=== PATIENT | male | born 1965 | race Caucasian/White ===

== ENCOUNTER 2023-11-27 17:04 | Emergency (ER) | payer SELFPAY ==
--- NOTE | 2023-11-27 17:02 | ECG_ITS ---
[facility] Test Date: 2023-11-27 Pat Name: Mika Bang Department: Room: Gender: Male Education And Training Coordinator: : 1965 Requested By: Octavio Connor Order Number: [id number] Petrona MD: Damian Choudhary M.D. Measurements Intervals [place] Rate: 75 P: 60 [place]: 166 QRS: 47 QRSD: 91 T: 65 QT: 370 QTc: 415 Interpretive Statements SINUS RHYTHM No previous ECG available for comparison Electronically Signed On 11-27-2023 19:21:36 CDT by Damian Choudhary M.D. [id number]
[2023-11-27 17:05] VITALS: BP 116/69; PULSE 72; RESP 18; TEMP 36.8; O2SAT 98; BMI 25.0
--- NOTE | 2023-11-27 17:09 | XRR_ITS ---
PROCEDURE INFORMATION: Exam: XR Chest Exam date and time: 11/27/2023 5:20 PM Age: 58 years old Clinical indication: Chest pressure; Patient HX: Syncopal episode; Chest pain TECHNIQUE: Imaging protocol: Radiologic exam of the chest. Views: 1 view. COMPARISON: No relevant prior studies available. FINDINGS: Lungs: Unremarkable. No consolidation. Pleural spaces: Unremarkable. No pleural effusion. No pneumothorax. Heart/Mediastinum: Unremarkable. No cardiomegaly. Bones/joints: Unremarkable. XR/XR chest 1V portable [id number] IMPRESSION: No acute findings.
--- NOTE | 2023-11-27 17:12 | ED_ITS ---
HPI - General Adult 2 General: Chief complaint: Syncope Stated complaint: STEMI Time Seen by Provider: 11/27/23 17:09 History of Present Illness: Patient has syncopal episode EMS arrived there. EMS got a twelve-lead that showed some ST segment elevation they called a STEMI alert. When patient arrived here patient was not having chest pain nor is he ever had chest pain, there initial blood pressure was 66/35 or so they gave him roughly a liter bolus normal saline upon arrival here his blood pressure was about 100/70 or so patient said he never had chest pain does not have any cardiac history is never had cardiac stents does not see a plastic fabricator. EKG here did not show probable STEMI may have had some ST segment elevation but he did not have any reciprocal changes, instructional media services technician was here she agreed and was taking the EKG down to Dr. Barajas. Patient was given 3 and 24 [address] by EMS. Dr. Barajas called back and said he is calling off the STEMI, does follow serial EKGs and troponins. Related Data Previous Rx's Medication Instructions Recorded clindamycin HCl 300 mg capsule 300 mg PO TID 10 days #30 caps 11/18/20 mupirocin 2 % topical ointment 1 applic topical BID #15 grams 11/18/20 cephalexin 500 mg capsule 500 mg PO Q8H 10 days #30 caps 12/05/20 Allergies Allergy/AdvReac Type Severity Reaction Status Date / Time No Known Allergies Allergy Verified 12/05/20 10:34 Review of Systems 2 General: Reports: 10 or more systems reviewed and unremarkable except in HPI and below PFSH ED 2 PFSH: Surgical History H/O shoulder surgery Family History Father Hypertension CAD (coronary artery disease) Mother Cancer leukemia Hypertension Physical Exam 2 Const: COMMON NORMALS: no acute distress, average body habitus, patient oriented x3, no limitations, healthy appearing, alert and well nourished HENMT: COMMON NORMALS: normocephalic, atraumatic, hearing grossly normal bilaterally, external ears normal, Normal external nose present and moist oral mucous membranes HEAD & SCALP: normocephalic and atraumatic NOSE: Normal external nose present EXTERNAL EAR: Yes external ears normal Neck/C-Spine: COMMON NORMALS: full ROM, no lymphadenopathy, supple, no meningeal signs, no JVD and Thyroid normal THYROID: Thyroid normal Chest: COMMONS NORMALS: normal inspection of the chest and normal palpation of entire chest wall Cardio: COMMON NORMALS: no JVD, regular rate, regular rhythm, S1 normal heart sound present, S2 normal heart sound present, No gallops present (Cardio), No clicks present (Cardio) and No murmurs present (Cardio) RATE: regular rate RHYTHM: regular rhythm HEART SOUNDS: S1 normal heart sound present and S2 normal heart sound present GI: COMMON NORMALS: Normal to inspection, nondistended, normoactive bowel sounds present, Soft to palpation, non-tender, No hepatosplenomegaly present and no masses PALPATION: Yes Soft to palpation and Yes No hepatosplenomegaly present Neuro: COMMON NORMALS: patient oriented x3 SENSORIUM/ORIENTATION: Yes alert MENINGEAL SIGNS: Yes no meningeal signs Course 2 Vital Signs: Vital signs: Vital Signs Temperature 98.3 F 11/27/23 17:05 Pulse Rate 71 11/27/23 17:40 Respiratory Rate 17 11/27/23 17:40 Blood Pressure 131/75 11/27/23 17:40 Pulse Oximetry 99 11/27/23 17:40 Oxygen Delivery Me thod Room Air 11/27/23 17:05 [facility] - General Adult Medical Decision Making While we was waiting for patient's lab work to come back patient left AGAINST MEDICAL ADVICE. Medical Records I reviewed the patient's medical records. Lab Data I reviewed the patient's lab results. 11/27/23 17:24 11/27/23 17:24 Radiology Impressions Chest X-Ray 11/27/23 17:09 IMPRESSION: No acute findings. Laboratory Results WBC 12.91 10^3/uL (3.29-11.43) H 11/27/23 17:24 RBC 5.33 10^6/uL (3.85-5.65) 11/27/23 17:24 Hgb 15.40 g/dL (11.27-16.99) 11/27/23 17:24 Hct 47.4 % (37-53) 11/27/23 17:24 MCV 88.9 fl (82-101) 11/27/23 17: MCH 28.9 pg (27-33) 11/27/23 17:24 MCHC 32.5 g/dL (30-55) 11/27/23 17:24 RDW 12.3 % (12.1-15.1) 11/27/23 17:24 Plt Count 345 10^3/cmm (157-399) 11/27/23 17:24 MPV 9.2 fL (7.4-10.4) 11/27/23 17: Neut % (Auto) 83.7 % 11/27/23 17: Lymph % (Auto) 8.7 % 11/27/23 17:24 [place] % (Auto) 5.4 % 11/27/23 17:24 Eos % (Auto) 1.3 % 11/27/23 17:24 Baso % (Auto) 0.4 % 11/27/23 17: Neut # (Auto) 10.81 10^3/uL (1.8-7.7) H 11/27/23 17: Lymph # (Auto) 1.1 10^3/uL (0.8-4.8) 11/27/23 17:24 [place] # (Auto) 0.7 10^3/uL (0.2-0.9) 11/27/23 17:24 Eos # (Auto) 0.2 10^3/uL (0.0-0.8) 11/27/23 17: Baso # (Auto) 0.1 10^3/uL (0.0-0.1) 11/27/23 17:24 Nucleated RBC % (auto) 0 % 11/27/23 17: Nucleated RBCs # 0.0 /100WBC 11/27/23 17:24 Sodium 138 mmol/L (136-145) 11/27/23 17:24 Potassium 4.2 mmol/L (3.5-5.1) 11/27/23 17:24 Chloride 100 mmol/L (98-107) 11/27/23 17:24 Carbon Dioxide 25 mmol/L (22-29) 11/27/23 17:24 Anion Gap 17.2 (5-19) 11/27/23 17:24 BUN 20 mg/dL (6-20) 11/27/23 17:24 Creatinine 1.5 mg/dL (0.7-1.2) H 11/27/23 17:24 GFR Calculation 47.9 mL/min (90-130) L 11/27/23 17:24 Glucose 100 mg/dL (65-115) 11/27/23 17:24 Calculated Osmolality 289 mOsm/kg (285-295) 11/27/23 17:24 Calcium 8.9 mg/dL (8.5-10.5) 11/27/23 17:24 Magnesium 2.3 mg/dL (1.7-2.3) 11/27/23 17:24 Total Bilirubin 0.4 mg/dL (0.15-1.2) 11/27/23 17:24 AST 17 U/L (0-40) 11/27/23 17:24 ALT 21 U/L (0-41) 11/27/23 17:24 Alkaline Phosphatase 75 U/L (40-130) 11/27/23 17:24 Troponin T Baseline 15 ng/L (0-15) 11/27/23 17:24 Troponin T 120 Minute 7.91 ng/L (0-15) 11/27/23 19:37 Delta Troponin T -7.09 ABS# (0-10) L 11/27/23 19:37 C-Reactive Protein 3.4 mg/L (0.0-4.9) 11/27/23 17:24 Total Protein 7.3 g/dL (6.6-8.7) 11/27/23 17:24 Albumin 4.1 g/dL (3.5-5.2) 11/27/23 17:24 Globulin 3.2 g/dL (1.3-4.6) 11/27/23 17:24 TSH 1.47 uIU/mL (0.27-4.20) 11/27/23 17:24 All radiology interpretation(s) finalized by discharge Discharge Plan Discharge Patient Disposition: Left Against Medical Advice Clinical Impression: Left against medical advice Condition: Stable Prescriptions: No Action clindamycin HCl 300 mg capsule 300 mg PO TID 10 Days Qty: 30 0RF mupirocin 2 % ointment 1 applic topical BID Qty: 15 1RF cephalexin 500 mg capsule 500 mg PO Q8H 10 Days Qty: 30 0RF Referrals: Mary Kate Abraham FNP [Primary Care Provider] - 1 week Patient Instructions: Against Medical Advice (ED) Coding Level of Care Code ED Retail Sales Professional for Chely Henao
[2023-11-27 17:31] LABS: Basophils # 0.1 10^3/uL (0.0-0.1); Basophils % 0.4 %; Eosinophils # 0.2 10^3/uL (0.0-0.8); Eosinophils % 1.3 %; Hematocrit 47.4 % (37-53); Lymphocytes # 1.1 10^3/uL (0.8-4.8); Lymphocytes % 8.7 %; Mean Corpuscular HGB Conc 32.5 g/dL (30-55); Mean Corpuscular Hemoglobin 28.9 pg (27-33); Mean Corpuscular Volume 88.9 fl (82-101); Mean Platelet Volume 9.2 fL (7.4-10.4); Monocytes # 0.7 10^3/uL (0.2-0.9); Monocytes % 5.4 %; Neutrophils # 10.81 10^3/uL (1.8-7.7); Neutrophils % 83.7 %; Nucleated Red Blood Cells % 0 %; Platelet Count 345 10^3/cmm (157-399); Red Blood Count 5.33 10^6/uL (3.85-5.65); Red Cell Distribution Width 12.3 % (12.1-15.1); White Blood Count 12.91 10^3/uL (3.29-11.43)
[2023-11-27 17:40] VITALS: BP 131/75; PULSE 71; RESP 17; O2SAT 99
[2023-11-27 17:53] LABS: Troponin(5th) Baseline 15 ng/L (0-15)
[2023-11-27 17:58] LABS: Alanine Aminotransferase 21 U/L (0-41); Albumin Level 4.1 g/dL (3.5-5.2); Alkaline Phosphatase 75 U/L (40-130); Anion Gap 17.2 (5-19); Aspartate Amino Transferase 17 U/L (0-40); Blood Urea Nitrogen 20 mg/dL (6-20); C Reactive Protein 3.4 mg/L (0.0-4.9); Calcium 8.9 mg/dL (8.5-10.5); Carbon Dioxide 25 mmol/L (22-29); Chloride 100 mmol/L (98-107); Creatinine Clr Calc Pharmacy 61.8099; Globulin 3.2 g/dL (1.3-4.6); Glomerular Filtration Rate 47.9 mL/min (90-130); Glucose 100 mg/dL (65-115); Magnesium 2.3 mg/dL (1.7-2.3); Osmolality Calculated 289 mOsm/kg (285-295); Potassium 4.2 mmol/L (3.5-5.1); Sodium 138 mmol/L (136-145); Thyroid Stimulating Hormone 1.47 uIU/mL (0.27-4.20); Total Bilirubin 0.4 mg/dL (0.15-1.2); Total Protein 7.3 g/dL (6.6-8.7)
[2023-11-27] MEDS: sodium chloride 0.9% 1,000 ML 999 ML IV (18:26)
--- NOTE | 2023-11-27 18:54 | ECG_ITS ---
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 Measurements Intervals [place] Rate: 73 P: 91 [place]: 167 QRS: 129 QRSD: 97 T: 91 QT: 384 QTc: 425 Interpretive Statements SINUS RHYTHM RIGHT AXIS DEVIATION [QRS AXIS > 100] LOW QRS VOLTAGE IN EXTREMITY LEADS [QRS DEFLECTION < 0.5 mV IN LIMB LEADS] Compared to ECG 11/27/2023 17:02:13 Right-axis deviation now present Low QRS voltage now present Electronically Signed On 11-27-2023 19:29:09 CDT by Damian Choudhary M.D. [id number]
[2023-11-27 19:46] VITALS: BP 136/84; PULSE 74; RESP 16; O2SAT 96
[2023-11-27 20:00] VITALS: BP 137/78; PULSE 74; RESP 17; O2SAT 97
[2023-11-27 20:09] LABS: Troponin 5 2HR 7.91 ng/L (0-15)
[2023-11-27 20:11] LABS: Troponin 5 2HR Delta -7.09 ABS# (0-10)
== END 2023-11-27 21:43 | disposition left against medical advice (07) ==
PROVIDERS: Emergency Provider Emergency Medicine; PCP Nurse Practitioner Family
DX: R55 Syncope and collapse (principal); Z53.29 Procedure and treatment not carried out because of patient's decision for other reasons
CPT/HCPCS: 71045; 80053; 83735; 84443; 84484; 85025; 86140; 93005; 99285; J7030